=== PATIENT | male | born 1980 | race Caucasian/White ===

== ENCOUNTER → 2017-12-05 | Outpatient (CLI) | payer BC ==
--- NOTE | 2017-12-05 23:31 | MR ---
EXAMINATION TYPE: MR knee LT wo con DATE OF EXAM: 12/05/2017 COMPARISON: NONE HISTORY: Left Knee Swelling, Effusion x3 days, inner knee pain after jumping injury. TECHNIQUE: Multiplanar, multisequence images of the knee is performed without IV contrast. FINDINGS: MEDIAL MENISCUS: Anterior and posterior horns are intact without tear. LATERAL MENISCUS: Anterior and posterior horns are intact without tear. CRUCIATE LIGAMENTS: The posterior cruciate ligament is intact and unremarkable. Anterior cruciate lig ament is discontiguous with tearing of the proximal fibers from the posterior aspect distal femur see n on sagittal image 16. COLLATERAL LIGAMENTS: The medial collateral ligament and lateral collateral ligament complex are inta ct and unremarkable. EXTENSOR MECHANISM: Visualized quadriceps and patellar tendons are intact. EFFUSION: There is large suprapatellar joint effusion. POPLITEAL CYST: No popliteal/cobb cyst. TRICOMPARTMENT SPACES: Tricompartment joint spaces are fairly well maintained. No significant spurrin g is seen. CARTILAGE: Tricompartment articular cartilage is maintained. There is no significant chondromalacia p atella. BONE MARROW SIGNAL: There is heterogeneous increased T2 signal posterior lateral tibial plateau sagit anish image 10 and central distal lateral femoral condyle same image correlating with coronal images 24 and 17 respectively. Findings consistent with osseous contusion pattern related to ACL tear. Additio nal small area of osseous contusion or bone marrow edema posterior lateral aspect of the medial tibia l plateau sagittal image 21 and coronal image 24 is noted. OTHER: There is fairly moderate diffuse subcutaneous edema with slightly more prominent edema along t he lateral aspect. There is ill-defined fluid or edema throughout the lateral distal femoral quadrice ps muscles axial image 30 for reference. IMPRESSION: 1. Complete ACL tear. Associated osseous contusion as detailed above. Additional tiny focus of osseou s contusion involving the posterior lateral aspect of the medial tibial plateau. 2. Large suprapatellar joint effusion. Moderate subcutaneous edema with edema throughout the lateral distal femoral or quadriceps muscles.
== END | disposition home or self-care (01) ==
LOC: RADMRIMAIN 16:26
PROVIDERS: ATTEND Emergency Medicine
DX: S83.512A Sprain of anterior cruciate ligament of left knee, initial encounter (principal); S80.02XA Contusion of left knee, initial encounter; S80.12XA Contusion of left lower leg, initial encounter

== ENCOUNTER → 2020-05-28 | Outpatient (CLI) | payer BC | END | disposition home or self-care (01) | LOC: LABMAIN 01:31 | PROVIDERS: ATTEND Nurse Practitioner | DX: Z20.822 Contact with and (suspected) exposure to COVID-19 (principal) | CPT/HCPCS: 36415; 86769 ==